=== PATIENT | female | born 1990 | race Caucasian/White ===

== ENCOUNTER 2016-04-20 17:24 | Emergency (ER) | payer OTHER ==
[2016-04-20] MEDS ORDERED: Sodium Chloride 0.9% 1000 ML 1,000 ML IV STA (17:53)
[2016-04-20] MEDS ORDERED: TYLENOL 325 MG PO STA (17:54)
[2016-04-20] MEDS ORDERED: Sodium Chloride 0.9% 1000 ML 1,000 ML ONE (17:55)
[2016-04-20] MEDS ORDERED: TYLENOL 325 MG ONE (17:55)
[2016-04-20 17:56] LABS: Bacteria FEW /HPF (NEGATIVE); COMPLETE URINE MICROSCOPIC? YES; Collection Type CATH; Epithelial Cells RARE /HPF (FEW); Mucus MANY /HPF (NEGATIVE)
[2016-04-20] MEDS ORDERED: Zofran 4 MG/2 ML VIAL IV ONE (17:56)
[2016-04-20] MEDS ORDERED: Zofran 4 MG/2 ML VIAL ONE (17:57)
--- NOTE | 2016-04-20 18:02 | ERPHSYRPT ---
- History of Present Illness Time Seen by Provider: 04/20/16 17:46 Source: patient Patient Subjective Stated Complaint: pt states she has had a fever for the past 1 day. pt c/o sorethroat and bodyaches with a cough. Triage Nursing Assessment: pt , flushed hot to touch dry. mouth dry. Physician History: CC: fever Hx: 25 y/o healthy patient of Dr Vizcaino with nausea, aches, myalgias, sore throat, headache, mild cough. Normal urination. No vomiting or diarrhea but had dry heave this AM. No rash. Symptoms moderate. Feels bad. Current normal menses. Timing/Duration: yesterday Allergies/Adverse Reactions: No Known Drug Allergies Allergy (Verified 04/20/16 17:35) Hx Tetanus, Diphtheria Vaccination/Date Given: Yes (up to date) Hx Influenza Vaccination/Date Given: No Hx Pneumococcal Vaccination/Date Given: No Immunizations Up to Date: Yes - Review of Systems Constitutional: Fever, Chills, Fatigue, Malaise, Weakness Eyes: No Symptoms Ears, Nose, & Throat: Nose Congestion, Throat Pain Respiratory: Cough (mild) Abdominal/Gastrointestinal: Nausea, No Vomiting, No Diarrhea Musculoskeletal: Myalgias Skin: No Rash Neurological: Headache All Other Systems: Reviewed and Negative - Past Medical History Pertinent Past Medical History: No Neurological History: No Pertinent History ENT History: No Pertinent History Cardiac History: No Pertinent History Respiratory History: No Pertinent History Endocrine Medical History: No Pertinent History Musculoskeletal History: No Pertinent History GI Medical History: No Pertinent History History: No Pertinent History Psycho-Social History: No Pertinent History Female Reproductive Disorders: No Pertinent History - Past Surgical History Past Surgical History: No Female Surgical History: Other Other Surgical History: 2 NATURAL CHILDBIRTHS - Social History Smoking Status: Never smoker Exposure to second hand smoke: Yes Drug Use: none Patient Lives Alone: No - Female History Hx Last Menstrual Period: now Hx Now: Yes - Nursing Vital Signs Nursing Vital Signs: Initial Vital Signs Temperature 100.1 F Temperature Source Oral Pulse Rate 98 Respiratory Rate 18 Blood Pressure [Right Arm] 119/70 Pain Intensity 3 - Physical Exam General Appearance: alert Eye Exam: PERRL/EOMI Ears, Nose, Throat Exam: dry mucous membranes Neck Exam: normal inspection, non-tender, supple Respiratory Exam: normal breath sounds, lungs clear Cardiovascular Exam: regular rate/rhythm, tachycardia, No murmur Gastrointestinal/Abdomen Exam: soft, No tenderness, No distention Back Exam: normal inspection Extremity Exam: normal inspection, normal range of motion Neurologic Exam: alert, oriented x 3, cooperative Skin Exam: warm, dry, No rash SpO2 Interpretation: normal SpO2: 100 Oxygen Delivery: Room Air - Course Nursing assessment & vital signs reviewed: Yes Ordered Tests: Active Orders 24 hr Category Date Time Status Cath for Specimen-Straight STAT Care 04/20/16 17:43 Active IV Insertion STAT Care 04/20/16 17:44 Active PO Popsicle STAT Care 04/20/16 17:57 Active HCG,QUALITATIVE URINE Stat Lab 04/20/16 17:45 Completed UA W/ MICROSCOPIC Stat Lab 04/20/16 17:45 Completed Medication Summary Discontinued Medications Generic Name Dose Route Start Last Admin Trade Name Freq PRN Reason Stop Dose Admin Acetaminophen 975 mg 04/20/16 17:54 04/20/16 17:55 Tylenol 325 Mg PO 04/20/16 17:55 975 mg STAT STA Administration Acetaminophen Confirm 04/20/16 17:55 Tylenol 325 Mg Administered 04/20/16 17:56 Dose 975 mg .ROUTE .STK-MED ONE Sodium Chloride 1,000 mls @ 999 mls/hr 04/20/16 17:53 04/20/16 17:56 Sodium Chloride 0.9% 1000 Ml IV 04/20/16 18:53 999 mls/hr .Q1H1M STA Administration Sodium Chloride Confirm 04/20/16 17:55 Sodium Chloride 0.9% 1000 Ml Administered 04/20/16 17:56 Dose 1,000 mls @ ud .ROUTE .STK-MED ONE Ondansetron HCl 4 mg 04/20/16 17:56 04/20/16 17:57 Zofran 4 Mg/2 Ml Vial IV 04/20/16 17:57 4 mg STAT ONE Administration Ondansetron HCl Confirm 04/20/16 17:57 Zofran 4 Mg/2 Ml Vial Administered 04/20/16 17:58 Dose 4 mg .ROUTE .STK-MED ONE Lab/Rad Data: Laboratory Results 04/20/16 04/20/16 04/20/16 Range/Units 17:45 17:45 17:45 Ur Collection Type CATH Urine Color YELLOW (YELLOW) Urine Appearance CLEAR (CLEAR) Urine pH 6.0 (5-6) Ur Specific [place] 1.025 (1.005-1.025) Urine Protein 100 (Negative) Urine Glucose (UA) NEGATIVE (NEGATIVE) mg/dL Urine Ketones SMALL-15 (NEGATIVE) Urine Nitrite NEGATIVE (NEGATIVE) Urine Bilirubin NEGATIVE (NEGATIVE) Urine Urobilinogen 1 (0-1) mg/dL Urine WBC (Auto) NEGATIVE (NEGATIVE) Urine RBC (Auto) NEGATIVE (0-5) Prakash/ul Urine Microscopic RBC 0-2 (0-2) /HPF Urine Microscopic WBC 2-5 (0-5) /HPF Ur Epithelial Cells RARE (FEW) /HPF Urine Bacteria FEW (NEGATIVE) /HPF Urine Mucus MANY (NEGATIVE) /HPF Urine HCG, Qual NEGATIVE (Negative) Influenza Type A Ag POSITIVE (NEGATIVE) Influenza Type B Ag NEGATIVE (NEGATIVE) RSV (PCR) NEGATIVE (Negative) Specimen Received 04-20-16 1749 - Progress Progress Note: 04/20/16 18:57 Feels better with meds and IVF. Flu instr given. Counseled pt/family regarding: lab results, diagnosis, need for follow-up - Departure Time of Disposition: 18:57 Departure Disposition: Home Clinical Impression: Influenza A Condition: Stable Critical Care Time: No Referrals: JENNA WARD NP [Primary Care Provider] - Instructions: Fever (Symptom) -- Adult, Influenza -- Adult Additional Instructions: UPPER RESPIRATORY INFECTIONS 1. The signs and symptoms of a cold may last up to 10 days. These illnesses are due to viruses which are not treatable with antibiotics. 2. The following suggestions can aid in recovery and to minimize symptoms: A. Increase fluid intake. B. Acetaminophen or Ibuprofen as directed. C. Avoid smoking environments as this will increase the risk of developing pneumonia. D. For children, may use a cool mist vaporizer in the child's room. 3. Contact your Family Physician if you note: A. Persisten fever >103 for more than 3 days B. Breathing difficulty C. Productive cough of yellow/green sputum D. Illness greater than 7 days E. Persistent vomiting F. Stiff neck Rx zofran for nausea. Drink plenty of fluids. Prescriptions: Ondansetron [Zofran Odt] 4 mg PO Q6HPRN PRN #10 tab.rapdis PRN Reason: Nausea/Vomiting
[2016-04-20 19:05] VITALS: BP 123/62; PULSE 117; O2SAT 98
== END 2016-04-20 19:05 | disposition home or self-care (01) ==
LOC: ED 17:24
DX: J11.1 Influenza due to unidentified influenza virus with other respiratory manifestations (principal); R50.9 Fever, unspecified; J02.9 Acute pharyngitis, unspecified; R05 Cough; R51 Headache; R11.2 Nausea with vomiting, unspecified
CPT/HCPCS: 36000; 81000; 84703; 87631; 96360; 96374; 99284; J2405; P9612; A9270-GY

== ENCOUNTER 2017-10-14 09:38 | Observation (INO) | payer OTHER ==
[2012-02-21 08:40] VITALS: BP 139/98
--- NOTE | 2017-10-14 10:49 | XRAY ---
Indication: well-being and growth. 2-dimensional OB ultrasound performed. Comparison: June 06, 2017. Again there is a single viable intrauterine now in cephalic presentation. heart rate 142 BPM. anatomy previously documented. Visualized stomach and bladder appear unremarkable. Placenta is again posterior fundal without abruption/previa. BPD measures 8.99 cm corresponding to 36 weeks 3 days. HC measures 32.80 cm corresponding to 37 weeks 2 days. AC measures 34.63 cm corresponding to 38 weeks 4 days. FL measures 7.17 cm corresponding to 36 weeks 5 days. ANDRE is 11.8 cm. Impression: Again single viable intrauterine with mean gestational age 37 weeks 2 days. Normal progression of . No new/acute findings.
[2017-10-14 11:40] VITALS: PULSE 77
[2017-10-14 12:03] VITALS: BP 116/76
== END 2017-10-14 11:40 | disposition home or self-care (01) ==
LOC: MED SURG 09:38 → UNDOADMOB 09:38 → UNDODISOB 11:40
PROVIDERS: ADMIT Family Medicine; ATTEND Family Medicine
DX: Z34.83 Encounter for supervision of other normal pregnancy, third trimester (principal)
CPT/HCPCS: 76805; G0378; 59025

== ENCOUNTER 2017-10-17 10:13 | Observation (INO) | payer OTHER ==
[2017-10-17 12:23] VITALS: BP 127/83; PULSE 81
== END 2017-10-17 12:23 | disposition home or self-care (01) ==
LOC: OB 10:13
PROVIDERS: ADMIT Family Medicine; ATTEND Family Medicine
DX: Z34.83 Encounter for supervision of other normal pregnancy, third trimester (principal)
CPT/HCPCS: 59025; G0378

== ENCOUNTER 2017-10-18 06:43 | Inpatient (IN) | payer OTHER ==
[2017-10-18 07:25] LABS: Appearance HAZY (CLEAR); Bacteria MODERATE /HPF (NEGATIVE); Bilirubin NEGATIVE (NEGATIVE); Blood NEGATIVE Ery/ul (0-5); Epithelial Cells PACKED /HPF (FEW); Glucose NEGATIVE (NEGATIVE); Ketones MODERATE (NEGATIVE); Leukocyte Esterase 1+ (NEGATIVE); Nitrite NEGATIVE (NEGATIVE); Protein,Urine Dip NEGATIVE (Negative); Urobilinogen 1 mg/dL (0-1); WBC 50-100 /HPF (0-5)
[2017-10-18] MEDS ORDERED: OB EPIDURAL NAROPIN/SUFENTANIL IN NACL EPIDURAL PRN ×2 (08:05→09:13)
[2017-10-18] MEDS ORDERED: Lactated Ringers 1,000 ML IV ONE ×2 (08:05→09:13)
[2017-10-18] MEDS ORDERED: Ephedrine Sulfate 50 MG/ML IV PRN ×2 (08:05→09:13)
[2017-10-18 08:12] LABS: Amphetamine,Urine NEGATIVE (NEGATIVE); Barbiturate,Urine NEGATIVE (NEGATIVE); Benzodiazepine,Urine NEGATIVE (NEGATIVE); Cocaine,Urine NEGATIVE (NEGATIVE); Methadone,Urine NEGATIVE (NEGATIVE); Opiate,Urine NEGATIVE (NEGATIVE); PCP,Urine NEGATIVE (NEGATIVE); THC,Urine NEGATIVE (NEGATIVE)
[2017-10-18 08:18] LABS: Hematocrit 34.5 % (35-47); Hemoglobin 11.7 gm/dl (12.0-16.0); Mean Cell Volume 83.7 fl (78-100); Mean Corpuscular Hgb Concent. 33.9 g/dl (32-36); Mean Platelet Volume 11.8 fl (6-9.5); Platelet Count 145 K/mm3 (150-450); Red Blood Count 4.12 M/mm3 (4.1-5.4); Red Cell Distribution Width 14.6 % (11.5-14.0); White Blood Count 6.3 K/mm3 (4.0-10.5)
[2017-10-18 08:32] LABS: Mean Corpuscular Hemoglobin 28.3 pg (26-32)
[2017-10-18] MEDS: Lactated Ringers 1,000 ML IV SCH ×3 (08:33→11:38)
[2017-10-18] MEDS ORDERED: Zofran 4 MG/2 ML VIAL IV PRN (09:13)
[2017-10-18] MEDS ORDERED: PITOCIN 30 UNITS/ LR 500 ML 500 ML IV SCH ×2 (09:30→13:30)
[2017-10-18 10:24] LABS: BAND 1 % (0.0-2.0); Lymphocytes 25 % (24-44); Monocyte 8 % (0.0-12.0); Neutrophils 66 % (36.0-66.0); Total Cells Counted 100
[2017-10-18 10:25] LABS: ANISOCYTOSIS 1+; Platelet Estimate NORMAL (NORMAL); Polychromasia RARE
[2017-10-18 10:26] LABS: Toxic Granulation 1+
[2017-10-18 13:14] LABS: Amphetamine,Urine NEGATIVE (NEGATIVE); Barbiturate,Urine NEGATIVE (NEGATIVE); Benzodiazepine,Urine NEGATIVE (NEGATIVE); Cocaine,Urine NEGATIVE (NEGATIVE); Methadone,Urine NEGATIVE (NEGATIVE); Opiate,Urine NEGATIVE (NEGATIVE); PCP,Urine NEGATIVE (NEGATIVE); THC,Urine NEGATIVE (NEGATIVE)
[2017-10-18] MEDS ORDERED: BRETHINE 1 MG/ML SQ PRN (13:26)
[2017-10-18] MEDS ORDERED: LANSINOH 40 GM TOP PRN (17:35)
[2017-10-18] MEDS ORDERED: Adacel Vial IM ONE (17:35)
[2017-10-18] MEDS ORDERED: MOTRIN 400 MG PO PRN (17:35)
[2017-10-18] MEDS ORDERED: NORCO 5/325 MG PO PRN (17:35)
[2017-10-18] MEDS ORDERED: Anucort-HC SUPPOSITORY PR PRN (17:35)
[2017-10-18] MEDS ORDERED: Ambien 10 MG PO PRN (17:35)
[2017-10-18] MEDS ORDERED: Dulcolax 10 MG SUPP PR PRN (17:35)
[2017-10-18] MEDS ORDERED: CORTISONE 1% CREAM TP PRN (17:35)
[2017-10-18] MEDS ORDERED: Mylicon 80MG PO PRN (17:35)
[2017-10-18] MEDS ORDERED: TYLENOL EXTRA STRENGTH 500 MG PO PRN (17:35)
[2017-10-18] MEDS ORDERED: TUCKS TP PRN (17:35)
[2017-10-18] MEDS ORDERED: Dermoplast Spray TP PRN (17:35)
[2017-10-18] MEDS ORDERED: Colace 100 MG PO SCH (22:00)
[2017-10-19 05:36] VITALS: O2SAT 98
[2017-10-19 05:49] LABS: BASOPHIL % 0.1 % (0.0-0.4); Basophil (Absolute #) 0.01 (0-0.4); Eosinophil % 0.8 % (0.00-5.0); Eosinophil (Absolute #) 0.07 (0-0.5); Granulocyte Absolute (ANC) 6.43 (1.4-6.9); Granulocytes % 77.7 % (36.0-66.0); Hematocrit 29.6 % (35-47); Hemoglobin 9.7 gm/dl (12.0-16.0); Lymphocyte (Absolute #) 1.07 (1.0-4.6); Lymphocytes % 12.9 % (24.0-44.0); Mean Cell Volume 85.8 fl (78-100); Mean Corpuscular Hemoglobin 28.1 pg (26-32); Mean Corpuscular Hgb Concent. 32.8 g/dl (32-36); Mean Platelet Volume 11.8 fl (6-9.5); Monocytes % 8.5 % (0.0-12.0); Platelet Count 136 K/mm3 (150-450); Red Blood Count 3.45 M/mm3 (4.1-5.4); Red Cell Distribution Width 14.6 % (11.5-14.0); White Blood Count 8.3 K/mm3 (4.0-10.5)
[2017-10-19] MEDS ORDERED: TYLENOL EXTRA STRENGTH 500 MG ONE (05:54)
[2017-10-19 08:56] VITALS: BP 138/84; PULSE 61
--- NOTE | 2017-10-19 08:56 | PCM.DS ---
Discharge Summary Date of Admission: 10/18/17 09:07 Admitting Physician: RAMIN VIZCAINO Consults: Consults on Case 10/18/17 08:06 Notify Anesthesia Provider PRN Primary Care Provider: RAMIN VIZCAINO Allergies Allergies No Known Drug Allergies Allergy (Verified 04/20/16 17:35) Hospital Summary - Hospital Course Hospital Course: Pt was admitted yesterday at at 36w 7d in active labor. She delivered a viable male at about 1720 yesterday. He was transferred to [facility] NICU in respiratory distress last night. Pt has had elevated bp into the 150s systolic on 2 occasions. She did have a mild DELANEY last night that resolved. She does have some chronic visual changes related to her migraines; she did have some of these visual changes last night. She has some LE edema this morning. She will be discharged today. Would like her to check BP at least BID for the next few weeks. See me in 1 week. Report any high bp (see pt instructions). She had a CBC this morning with platelets of 136; CMP and uric acid are pending. - Vitals & Intake/Output Vital Signs: Vital Signs Temperature 98.0 F 10/19/17 05:15 Pulse Rate 62 10/19/17 05:15 Respiratory Rate 20 10/19/17 05:15 Blood Pressure 152/92 10/19/17 05:15 O2 Sat by Pulse Oximetry 98 10/19/17 05:15 Intake & Output: Intake & Output 10/16/17 10/17/17 10/18/17 10/19/17 11:59 11:59 11:59 11:59 Intake Total 1500 5020 Output Total 300 Balance 1500 4720 Weight 132 kg - Lab Result Diagrams: 10/19/17 05:11 Lab Results-Last 24 Hrs: Lab Results-Last 24 Hours 10/18/17 10/18/17 10/18/17 Range/Units 08:15 08:17 12:40 WBC 6.3 (4.0-10.5) K/mm3 RBC 4.12 (4.1-5.4) M/mm3 Hgb 11.7 L (12.0-16.0) gm/dl Hct 34.5 L (35-47) % MCV 83.7 (78-100) fl MCH 28.3 (26-32) pg MCHC 33.9 (32-36) g/dl RDW 14.6 H (11.5-14.0) % Plt Count 145 L (150-450) K/mm3 MPV 11.8 H (6-9.5) fl Gran % (36.0-66.0) % Eos # (Auto) (0-0.5) Absolute Lymphs (auto) (1.0-4.6) Absolute Monos (auto) (0.0-1.3) Lymphocytes % (24.0-44.0) % Monocytes % (0.0-12.0) % Eosinophils % (0.00-5.0) % Basophils % (0.0-0.4) % Absolute Granulocytes (1.4-6.9) Segmented Neutrophils 66 (36.0-66.0) % Band Neutrophils 1 (0.0-2.0) % Lymphocytes (Manual) 25 (24-44) % Monocytes (Manual) 8 (0.0-12.0) % Basophils # (0-0.4) Toxic Granulation 1+ Platelet Estimate NORMAL (NORMAL) RBC Morphology ABNORMAL Polychromasia RARE Anisocytosis 1+ Urine Opiates Level NEGATIVE NEGATIVE (NEGATIVE) Ur Methadone NEGATIVE NEGATIVE (NEGATIVE) Urine Barbiturates NEGATIVE NEGATIVE (NEGATIVE) Ur Phencyclidine (PCP) NEGATIVE NEGATIVE (NEGATIVE) Urine Amphetamine NEGATIVE NEGATIVE (NEGATIVE) U Benzodiazepine Level NEGATIVE NEGATIVE (NEGATIVE) Urine Cocaine NEGATIVE NEGATIVE (NEGATIVE) Urine Marijuana (THC) NEGATIVE NEGATIVE (NEGATIVE) 10/19/17 Range/Units 05:11 WBC 8.3 (4.0-10.5) K/mm3 RBC 3.45 L (4.1-5.4) M/mm3 Hgb 9.7 L (12.0-16.0) gm/dl Hct 29.6 L (35-47) % MCV 85.8 (78-100) fl MCH 28.1 (26-32) pg MCHC 32.8 (32-36) g/dl RDW 14.6 H (11.5-14.0) % Plt Count 136 L (150-450) K/mm3 MPV 11.8 H (6-9.5) fl Gran % 77.7 H (36.0-66.0) % Eos # (Auto) 0.07 (0-0.5) Absolute Lymphs (auto) 1.07 (1.0-4.6) Absolute Monos (auto) 0.70 (0.0-1.3) Lymphocytes % 12.9 L (24.0-44.0) % Monocytes % 8.5 (0.0-12.0) % Eosinophils % 0.8 (0.00-5.0) % Basophils % 0.1 (0.0-0.4) % Absolute Granulocytes 6.43 (1.4-6.9) Segmented Neutrophils (36.0-66.0) % Band Neutrophils (0.0-2.0) % Lymphocytes (Manual) (24-44) % Monocytes (Manual) (0.0-12.0) % Basophils # 0.01 (0-0.4) Toxic Granulation Platelet Estimate (NORMAL) RBC Morphology Polychromasia Anisocytosis Urine Opiates Level (NEGATIVE) Ur Methadone (NEGATIVE) Urine Barbiturates (NEGATIVE) Ur Phencyclidine (PCP) (NEGATIVE) Urine Amphetamine (NEGATIVE) U Benzodiazepine Level (NEGATIVE) Urine Cocaine (NEGATIVE) Urine Marijuana (THC) (NEGATIVE) Discharge Exam General Appearance: no apparent distress, alert Neurologic Exam: oriented x 3, cooperative, other (pat refl 2+ bilat. no clonus bilaterally) Skin Exam: normal color, warm, dry, No rash Respiratory Exam: normal breath sounds, lungs clear, No crackles/rales, No rhonchi, No wheezing Cardiovascular Exam: regular rate/rhythm, normal heart sounds, No murmur Gastrointestinal/Abdomen Exam: soft, other (fundus firm under umbilicus) Extremity Exam: pedal edema (trace LE edema bilat) Final Diagnosis/Problem List - Final Discharge Diagnosis/Problem (1) Vaginal delivery Current Visit: No Status: Acute Assessment & Plan: PPD #1 - ok to discharge today so she can go to the NICU to see her baby. (2) induced hypertension Current Visit: Yes Status: Acute Assessment & Plan: With some edema and low platelets; discussed s/sx of pre-eclampsia. Would like her to check BP BID and report high BP (see pt instructions). Would send her to OB triage at [facility] if having issues at NICU. (3) Thrombocytopenia Current Visit: Yes Status: Acute Assessment & Plan: Will keep an eye on platelets; decreased from yesterday. Will need to recheck in 2 days. - Discharge Disposition: Home, Self-Care Condition: Stable Additional Instructions: Check your blood pressures at least twice daily; more if you are not feeling well. If the top number is over 160 or the bottom number is over 110, you MUST call the office KATHY (or, if you are at [facility], go to the OB triage). Let a doctor know KATHY if you notice more swelling in your legs, hands, or face (especially if it is sudden), have a severe headache, or start having visual changes that are new or different. Get lab work done on Tuesday. Return to Dr. Vizcaino in 1 week. Follow up with: RAMIN VIZCAINO [Primary Care Provider] - 1 Week
[2017-10-19] MEDS ORDERED: FERREX 150 PO SCH (10:00)
[2017-10-19 10:07] LABS: ALBUMIN 2.6 g/dL (3.5-5.0); ALKALINE PHOSPHATASE 174 U/L (38-126); ANION GAP 8.9 MEQ/L (5-15); BLOOD UREA NITROGEN 9 mg/dL (7-17); CHLORIDE 108 mmol/L (98-107); Calcium 8.6 mg/dL (8.4-10.2); Carbon Dioxide 27 mmol/L (22-30); Creatinine 1 0.68 mg/dL (0.52-1.04); Glucose 92 mg/dL (74-106); SGOT/AST 35 U/L (14-36); SGPT/ALT 25 U/L (0-35); SODIUM 140 mmol/L (137-145); Total Protein 5.2 g/dL (6.3-8.2); Uric Acid 5.9 mg/dL (2.6-6.0)
== END 2017-10-19 09:55 | disposition home or self-care (01) | DRG 775 ==
LOC: OB 06:43 → OBSVTOIN 09:07 → OB 09:07
PROVIDERS: ADMIT Family Medicine; ATTEND Family Medicine
PROC: 10E0XZZ Delivery of Products of Conception, External Approach (ICD-10-PCS; principal; 2017-10-18)
DX: O13.4 Gestational [pregnancy-induced] hypertension without significant proteinuria, complicating childbirth (principal); O24.429 Gestational diabetes mellitus in childbirth, unspecified control; Z3A.38 38 weeks gestation of pregnancy; Z37.0 Single live birth; D64.9 Anemia, unspecified; D69.6 Thrombocytopenia, unspecified
CPT/HCPCS: 36415; 59025; 80053; 80307; 81000; 84550; 85007; 85025; 85027; G0378; J2590; J2795; A9270-GY

== ENCOUNTER 2019-03-07 18:36 | Emergency (ER) | payer OTHER ==
[2019-03-07] MEDS ORDERED: Sodium Chloride 0.9% 1000 ML 1,000 ML IV STA (19:33)
[2019-03-07] MEDS ORDERED: Zofran 4 MG/2 ML VIAL IV ONE (19:33)
[2019-03-07] MEDS ORDERED: MORPHINE SULFATE 2 MG INJ IV ONE (19:33)
--- NOTE | 2019-03-07 19:35 | ERPHSYRPT ---
- History of Present Illness Time Seen by Provider: 03/07/19 19:00 Historian: patient Exam Limitations: no limitations Patient Subjective Stated Complaint: abdominal pain Triage Nursing Assessment: Patient brought back to ED via w/c and transferred self to bed. Patient A+O X3. Patient's skin pink, warm and dry. Patient complains of right sided abdominal pain constant throbbing/burning pain 4/10 that has gotten worse all day. Patient's abdomen soft and round with BS X 4. Patient states she has been having diarrhea, vomiting and nausea all day. Patient states she is having gallbladder surgery on 03/12/[address] Bose. Timing/Duration: today Activities at Onset: none Quality: aching Abdominal Pain Onset Location: RUQ Pain Radiation: no radiation Severity of Pain-Max: moderate Severity of Pain-Current: moderate Modifying Factors: Improves With: nothing Associated Symptoms: diarrhea, nausea, vomiting, No back, No chest pain, No diaphoresis, No fever/chills, No loss of appetite, No neck pain, No shortness of breath Previous symptoms: same symptoms as today (h/o RUQ pain. She is scheduled for cholecystectomy in early March.) Allergies/Adverse Reactions: No Known Drug Allergies Allergy (Verified 03/07/19 18:46) Hx Tetanus, Diphtheria Vaccination/Date Given: Yes (up to date) Hx Influenza Vaccination/Date Given: No Hx Pneumococcal Vaccination/Date Given: No Immunizations Up to Date: Yes - Review of Systems Constitutional: No Fever, No Chills Eyes: No Symptoms Ears, Nose, & Throat: No Symptoms Respiratory: No Cough, No Dyspnea Cardiac: No Chest Pain, No Edema, No Syncope Abdominal/Gastrointestinal: Abdominal Pain, Nausea, Vomiting, Diarrhea, No Constipation, No Hematemesis, No Hematochezia, No Melena, No Dysphagia Genitourinary Symptoms: No Symptoms, No Dysuria Musculoskeletal: No Back Pain, No Neck Pain Skin: No Rash Neurological: No Dizziness, No Focal Weakness, No Sensory Changes Psychological: No Symptoms Endocrine: No Symptoms All Other Systems: Reviewed and Negative - Past Medical History Pertinent Past Medical History: Yes Neurological History: No Pertinent History ENT History: No Pertinent History Cardiac History: Hypertension, No Pertinent History Respiratory History: No Pertinent History Endocrine Medical History: No Pertinent History Musculoskeletal History: No Pertinent History GI Medical History: No Pertinent History History: No Pertinent History Psycho-Social History: No Pertinent History Female Reproductive Disorders: No Pertinent History - Past Surgical History Past Surgical History: No Neuro Surgical History: No Pertinent History Cardiac: No Pertinent History Respiratory: No Pertinent History Gastrointestinal: No Pertinent History Genitourinary: No Pertinent History Musculoskeletal: No Pertinent History Female Surgical History: No Pertinent History, Other Other Surgical History: 4 NATURAL CHILDBIRTHS - Social History Smoking Status: Never smoker Exposure to second hand smoke: No Drug Use: none Patient Lives Alone: No - Female History Hx Last Menstrual Period: this month Hx Now: No - Nursing Vital Signs Nursing Vital Signs: Initial Vital Signs Temperature 98.0 F 03/07/19 18:47 Pulse Rate 114 H 03/07/19 18:47 Respiratory Rate 18 03/07/19 18:47 Blood Pressure 123/77 03/07/19 18:47 O2 Sat by Pulse Oximetry 99 03/07/19 18:47 Pain Scale Pain Intensity 0 - Physical Exam General Appearance: no apparent distress, alert Eye Exam: PERRL/EOMI, eyes nml inspection Ears, Nose, Throat Exam: normal ENT inspection, pharynx normal, moist mucous membranes Neck Exam: normal inspection, non-tender, supple, full range of motion Respiratory Exam: normal breath sounds, lungs clear, No respiratory distress Cardiovascular Exam: regular rate/rhythm, normal heart sounds Gastrointestinal/Abdomen Exam: soft, tenderness (Rt. UQ TTP. Palpation reproduces symptoms. ), No mass, No guarding Pelvic Exam: not done Back Exam: normal inspection, normal range of motion, No CVA tenderness, No vertebral tenderness Extremity Exam: normal inspection, normal range of motion, pelvis stable Neurologic Exam: alert, oriented x 3, cooperative, normal mood/affect, nml cerebellar function, sensation nml, No motor deficits Skin Exam: normal color, warm, dry SpO2 Interpretation: normal SpO2: 99 O2 Delivery: Room Air - CT Exams Abdomen/Pelvis CT Interpretation: Negative Ordered Tests: Active Orders 24 hr Category Date Time Status IV Insertion STAT Care 03/07/19 19:33 Active ABDOMEN AND PELVIS W CONTRAST [CT] Stat Exams 03/07/19 20:05 Taken CBC W DIFF Stat Lab 03/07/19 19:58 Completed CMP Stat Lab 03/07/19 19:58 Completed HCG,QUALITATIVE URINE Stat Lab 03/07/19 20:50 Completed LIPASE Stat Lab 03/07/19 19:58 Completed UA W/RFX UR CULTURE Stat Lab 03/07/19 20:50 Completed Medication Summary Discontinued Medications Generic Name Dose Route Start Last Admin Trade Name Tl PRN Reason Stop Dose Admin Sodium Chloride 1,000 mls @ 999 mls/hr 03/07/19 19:33 03/07/19 21:33 Sodium Chloride 0.9% 1000 Ml IV 03/07/19 20:33 Infused .Q1H1M STA Infusion Sodium Chloride Confirm 03/07/19 20:00 Sodium Chloride 0.9% 1000 Ml Administered 03/07/19 20:01 Dose 1,000 mls @ ud .ROUTE .STK-MED ONE Morphine Sulfate 2 mg 03/07/19 19:33 03/07/19 20:03 Morphine Sulfate 2 Mg Inj IV 03/07/19 19:34 2 mg STAT ONE Administration Morphine Sulfate Confirm 03/07/19 20:00 Morphine Sulfate 2 Mg Inj Administered 03/07/19 20:01 Dose 2 mg .ROUTE .STK-MED ONE Ondansetron HCl 4 mg 03/07/19 19:33 03/07/19 20:03 Zofran 4 Mg/2 Ml Vial IV 03/07/19 19:34 4 mg STAT ONE Administration Ondansetron HCl Confirm 03/07/19 19:59 Zofran 4 Mg/2 Ml Vial Administered 03/07/19 20:00 Dose 4 mg .ROUTE .STK-MED ONE Lab/Rad Data: Laboratory Result Diagrams 03/07/19 19:58 03/07/19 19:58 Laboratory Results 03/07/19 03/07/19 03/07/19 Range/Units 20:50 20:50 19:58 WBC (4.0-10.5) K/mm3 RBC (4.1-5.4) M/mm3 Hgb (12.0-16.0) gm/dl Hct (35-47) % MCV (78-100) fl MCH (26-32) pg MCHC (32-36) g/dl RDW (11.5-14.0) % Plt Count (150-450) K/mm3 MPV (7.5-11.0) fl Gran % (36.0-66.0) % Eos # (Auto) (0-0.5) Absolute Lymphs (auto) (1.0-4.6) Absolute Monos (auto) (0.0-1.3) Lymphocytes % (24.0-44.0) % Monocytes % (0.0-12.0) % Eosinophils % (0.00-5.0) % Basophils % (0.0-0.4) % Absolute Granulocytes (1.4-6.9) Basophils # (0-0.4) Sodium 141 (137-145) mmol/L Potassium 3.8 (3.5-5.1) mmol/L Chloride 108 H (98-107) mmol/L Carbon Dioxide 22 (22-30) mmol/L Anion Gap 14.9 (5-15) MEQ/L BUN 14 (7-17) mg/dL Creatinine 0.71 (0.52-1.04) mg/dL Estimated GFR > 60.0 ML/MIN Glucose 110 H (74-106) mg/dL Calcium 9.7 (8.4-10.2) mg/dL Total Bilirubin 0.80 (0.2-1.3) mg/dL AST 22 (14-36) U/L ALT 14 (0-35) U/L Alkaline Phosphatase 113 (38-126) U/L Serum Total Protein 8.4 H (6.3-8.2) g/dL Albumin 4.8 (3.5-5.0) g/dL Lipase 72 (23-300) U/L Urine Color [place] (YELLOW) Urine Appearance CLOUDY (CLEAR) Urine pH 5.0 (5-6) Ur Specific [place] 1.034 (1.005-1.025) Urine Protein NEGATIVE (Negative) Urine Ketones SMALL (NEGATIVE) Urine Blood MODERATE (0-5) Prakash/ul Urine Nitrite NEGATIVE (NEGATIVE) Urine Bilirubin SMALL (NEGATIVE) Urine Urobilinogen NEGATIVE (0-1) mg/dL Ur Leukocyte Esterase NEGATIVE (NEGATIVE) Urine WBC (Auto) 3-5 (0-5) /HPF Urine RBC (Auto) 3-5 (0-2) /HPF U Hyaline Cast (Auto) 0-2 (0-2) /LPF U Epithel Cells (Auto) MODERATE (FEW) /HPF Urine Bacteria (Auto) NONE (NEGATIVE) /HPF Urine Mucus (Auto) MANY (NEGATIVE) /HPF Urine Culture Reflexed NO (NO) Urine Glucose NEGATIVE (NEGATIVE) mg/dL Urine HCG, Qual NEGATIVE (Negative) 03/07/19 Range/Units 19:58 WBC 10.5 (4.0-10.5) K/mm3 RBC 5.29 (4.1-5.4) M/mm3 Hgb 15.3 (12.0-16.0) gm/dl Hct 43.7 (35-47) % MCV 82.6 (78-100) fl MCH 28.9 (26-32) pg MCHC 35.0 (32-36) g/dl RDW 14.3 H (11.5-14.0) % Plt Count 227 (150-450) K/mm3 MPV 10.8 (7.5-11.0) fl Gran % 86.4 H (36.0-66.0) % Eos # (Auto) 0.04 (0-0.5) Absolute Lymphs (auto) 0.80 L (1.0-4.6) Absolute Monos (auto) 0.58 (0.0-1.3) Lymphocytes % 7.6 L (24.0-44.0) % Monocytes % 5.5 (0.0-12.0) % Eosinophils % 0.4 (0.00-5.0) % Basophils % 0.1 (0.0-0.4) % Absolute Granulocytes 9.03 H (1.4-6.9) Basophils # 0.01 (0-0.4) Sodium (137-145) mmol/L Potassium (3.5-5.1) mmol/L Chloride (98-107) mmol/L Carbon Dioxide (22-30) mmol/L Anion Gap (5-15) MEQ/L BUN (7-17) mg/dL Creatinine (0.52-1.04) mg/dL Estimated GFR ML/MIN Glucose (74-106) mg/dL Calcium (8.4-10.2) mg/dL Total Bilirubin (0.2-1.3) mg/dL AST (14-36) U/L ALT (0-35) U/L Alkaline Phosphatase (38-126) U/L Serum Total Protein (6.3-8.2) g/dL Albumin (3.5-5.0) g/dL Lipase (23-300) U/L Urine Color (YELLOW) Urine Appearance (CLEAR) Urine pH (5-6) Ur Specific [place] (1.005-1.025) Urine Protein (Negative) Urine Ketones (NEGATIVE) Urine Blood (0-5) Prakash/ul Urine Nitrite (NEGATIVE) Urine Bilirubin (NEGATIVE) Urine Urobilinogen (0-1) mg/dL Ur Leukocyte Esterase (NEGATIVE) Urine WBC (Auto) (0-5) /HPF Urine RBC (Auto) (0-2) /HPF U Hyaline Cast (Auto) (0-2) /LPF U Epithel Cells (Auto) (FEW) /HPF Urine Bacteria (Auto) (NEGATIVE) /HPF Urine Mucus (Auto) (NEGATIVE) /HPF Urine Culture Reflexed (NO) Urine Glucose (NEGATIVE) mg/dL Urine HCG, Qual (Negative) - Progress Progress Note: 03/07/19 22:40 Patient reassessed. Pain essentially resolved. Patient has an appetite and states that she wants to eat. She will follow up with her general surgeon. We intended to obtain a US GB but unable to do so as US would not be available until tomorrow morning. Patient requesting discharge. - Departure Departure Disposition: Home Clinical Impression: Abdominal pain, Hepatomegaly, Splenomegaly, Scoliosis Condition: Good Critical Care Time: No Referrals: RAMIN MACK [Primary Care Provider] - Instructions: Acute Abdomen (Belly Pain), Adult (DC) Additional Instructions: Discharge/Care Plan NARCISO HAYS was seen on 03/07/19 in the Emergency Room. The patient was counseled regarding Diagnosis,Lab results, Imaging studies, need for follow up and when to return to the Emergency Room. Prescriptions given: Discharge Note I have spoken with the patient and/or caregivers. I have explained the patient' s condition, diagnosis and treatment plan based on the information available to me at this time. I have answered the patient's and/or caregiver's questions and addressed any concerns. The patient and/or caregivers have as good understanding of the patient's diagnosis, condition and treatment plan as can be expected at this point. The vital signs have been stable. The patient's condition is stable and appropriate for discharge from the emergency department. The patient will pursue further outpatient evaluation with the primary care physician or other designated or consulting physician as outlined in the discharge instructions. The patient and/or caregivers are agreeable to this plan of care and follow-up instructions have been explained in detail. The patient and/or caregivers have received these instruction. The patient/and or caregivers are aware that any significant change in condition or worsening of symptoms should prompt an immediate return to this or the closest emergency department or call 911.
[2019-03-07] MEDS ORDERED: Zofran 4 MG/2 ML VIAL ONE (19:59)
[2019-03-07] MEDS ORDERED: MORPHINE SULFATE 2 MG INJ ONE (20:00)
[2019-03-07] MEDS ORDERED: Sodium Chloride 0.9% 1000 ML 1,000 ML ONE (20:00)
[2019-03-07 20:05] LABS: Absolute Neutrophil Ct (ANC) 9.03 (1.4-6.9); BASOPHIL % 0.1 % (0.0-0.4); Basophil (Absolute #) 0.01 (0-0.4); Eosinophil % 0.4 % (0.00-5.0); Eosinophil (Absolute #) 0.04 (0-0.5); Hematocrit 43.7 % (35-47); Hemoglobin 15.3 gm/dl (12.0-16.0); Lymphocytes % 7.6 % (24.0-44.0); Mean Cell Volume 82.6 fl (78-100); Mean Corpuscular Hemoglobin 28.9 pg (26-32); Mean Platelet Volume 10.8 fl (7.5-11.0); Monocyte (Absolute #) 0.58 (0.0-1.3); Monocytes % 5.5 % (0.0-12.0); Neutrophil % 86.4 % (36.0-66.0); Platelet Count 227 K/mm3 (150-450); Red Blood Count 5.29 M/mm3 (4.1-5.4); Red Cell Distribution Width 14.3 % (11.5-14.0); White Blood Count 10.5 K/mm3 (4.0-10.5)
[2019-03-07 20:23] LABS: ALBUMIN 4.8 g/dL (3.5-5.0); ALKALINE PHOSPHATASE 113 U/L (38-126); ANION GAP 14.9 MEQ/L (5-15); BLOOD UREA NITROGEN 14 mg/dL (7-17); CHLORIDE 108 mmol/L (98-107); Calcium 9.7 mg/dL (8.4-10.2); Carbon Dioxide 22 mmol/L (22-30); Creatinine 1 0.71 mg/dL (0.52-1.04); Glucose 110 mg/dL (74-106); LIPASE 72 U/L (23-300); Potassium 3.8 mmol/L (3.5-5.1); SGOT/AST 22 U/L (14-36); SGPT/ALT 14 U/L (0-35); SODIUM 141 mmol/L (137-145); Total Protein 8.4 g/dL (6.3-8.2)
[2019-03-07 21:06] LABS: Appearance CLOUDY (CLEAR); Bilirubin SMALL (NEGATIVE); Blood MODERATE Ery/ul (0-5); Epithelial Cells MODERATE /HPF (FEW); Glucose NEGATIVE (NEGATIVE); Hyaline Casts 0-2 /LPF (0-2); Ketones SMALL (NEGATIVE); Leukocyte Esterase NEGATIVE (NEGATIVE); Mucus MANY /HPF (NEGATIVE); Nitrite NEGATIVE (NEGATIVE); Protein,Urine Dip NEGATIVE (Negative); Specific Gravity 1.034 (1.005-1.025); Urobilinogen NEGATIVE mg/dL (0-1)
[2019-03-07 22:39] VITALS: BP 100/69; PULSE 92
[2019-03-07 22:42] VITALS: O2SAT 99
--- NOTE | 2019-03-08 08:39 | XRAY ---
Indication: Abdomen pain, nausea, vomiting, and diarrhea. Multiple contiguous axial images obtained through the abdomen and pelvis using 80 cc Isovue 370 contrast only. Comparison: CT renal stone study December 24, 2016. Lung bases are clear. Heart is not enlarged. Noncontrasted stomach and bowel loops appear nonobstructed. Appendix not seen. No free fluid/air. Stable 15.6 cm splenomegaly and nonobstructing punctate right renal calculus. Remaining liver, gallbladder, pancreas, spleen, adrenal glands, kidneys, ureters, bladder, uterus, and aorta appear normal in CT appearance and attenuation. No pathologic retroperitoneal lymphadenopathy. Osseous structures intact again with double curvature thoracolumbar scoliosis. Impression: 1. Stable splenomegaly, nonobstructing right renal micro-calculus, and scoliosis. 2. Remaining CT abdomen/pelvis with contrast exam is negative.
== END 2019-03-07 22:39 | disposition home or self-care (01) ==
LOC: ED 18:36
DX: R10.9 Unspecified abdominal pain (principal); R16.2 Hepatomegaly with splenomegaly, not elsewhere classified; M41.9 Scoliosis, unspecified
CPT/HCPCS: 36000; 36415; 74177; 80053; 81001; 83690; 84703; 85025; 96360; 96374; 96375; 99284; J2270; J2405

== ENCOUNTER 2019-03-12 11:30 | Day surgery (SDC) | payer OTHER ==
--- NOTE | 2019-03-12 08:18 | HP ---
DATE OF SURGERY: 03/12/2019 HISTORY OF PRESENT ILLNESS: The patient is a 28 year-old with epigastric pain back in December. She went to the emergency department associated with some nausea, vomiting and diarrhea worse with fatty and greasy type foods. PAST MEDICAL HISTORY: Reflux. PAST SURGICAL HISTORY: She denied any prior abdominal surgery. MEDICATIONS: Omeprazole. ALLERGIES: NKDA. FAMILY HISTORY: Ulcers. Negative in regards to this problem. SOCIAL HISTORY: No alcohol abuse. REVIEW OF SYSTEMS: Fourteen systems reviewed. No chest pain or palpitations other systems negative or noncontributory as above and per preadmission questionnaire. Otherwise, pertinent for GI complaints mentioned above. PHYSICAL EXAMINATION: GENERAL: No acute distress. HEENT: Sclerae nonicteric. NECK: No JVD. CHEST: Equal excursion, nonlabored breathing. CVS: Regular rate and rhythm. ABDOMEN: Soft, nontender on office exam. No peritoneal signs. EXTREMITIES: No significant edema. NEURO: Alert, oriented, moving extremities symmetrically. No gross motor deficits noted. LAB DATA AND TESTS: Gallbladder ultrasound negative. HIDA scan ejection fraction 22%. IMPRESSION: Symptomatic biliary dyskinesia chronic cholecystitis. I feel the patient will benefit from cholecystectomy. Risks and benefits explained in detail including but not limited to bleeding or infection, risk of trocar injury or hernia, risk of bowel, bladder or blood vessel injury, risk of bile leak, bile duct injury, retained stone or sludge possibly requiring further procedure either open or ERCP, general risk of anesthesia, deep venous thrombosis, pulmonary embolism, pneumonia, perioperative risk of aches, pains, bloating, constipation and/or loose stools possibly even chronic in nature. She understands all the above but not limited to as well as possibility if symptoms do not improve may need consideration of endoscopy or other studies or work up. She understands and agrees to the planned procedure, will proceed with laparoscopic cholecystectomy possible open.
[~2019-03-12 11:30] MED LIST: Lactated Ringers 1,000 ML IV ONE; Sensorcaine 0.25% 10 ML ONE
[2019-03-12] MEDS ORDERED: Lactated Ringers 1,000 ML IV ONE (11:45)
[2019-03-12 11:58] VITALS: O2SAT 100
[2019-03-12] MEDS ORDERED: MEFOXIN 2 GM PREMIX** 2 GM/50 ML ML IV SCH (12:00)
[2019-03-12] MEDS ORDERED: Lactated Ringers 1,000 ML IV SCH (12:00)
[2019-03-12] MEDS ORDERED: Zemuron 100 MG/10 ML ONE (12:42)
[2019-03-12] MEDS ORDERED: DIPRIVAN 200 MG/20 ML IV ONE (12:42)
[2019-03-12] MEDS ORDERED: Quelicin Fliptop 200 MG/10 ML ONE (12:42)
[2019-03-12] MEDS ORDERED: SUBLIMAZE 100 MCG/2 ML ONE ×2 (12:42→13:50)
[2019-03-12] MEDS ORDERED: TORAdol 30 mg Injection ONE (13:00)
[2019-03-12] MEDS ORDERED: Zofran 4 MG/2 ML VIAL ONE (13:00)
[2019-03-12] MEDS ORDERED: Decadron 4 MG INJ ONE (13:00)
[2019-03-12] MEDS ORDERED: BRIDION 200MG/2ML IV ONE (13:00)
[2019-03-12 15:33] VITALS: BP 132/82; PULSE 84
--- NOTE | 2019-03-13 12:20 | OP ---
SURGERY DATE/TIME: 03/12/2019 1250 PREOPERATIVE DIAGNOSIS: Symptomatic biliary dyskinesia, chronic cholecystitis. POSTOPERATIVE DIAGNOSIS: Symptomatic biliary dyskinesia, chronic cholecystitis. PROCEDURE: Laparoscopic cholecystectomy. SURGEON: Dr. Fran Pepper. ANESTHESIA: General. ESTIMATED BLOOD LOSS: Minimal. INDICATIONS: As noted above. Risks and benefits explained in detail but not limited to and consent obtained. DESCRIPTION OF PROCEDURE AND FINDINGS: The patient was taken to the operating room. General anesthesia induced. Abdomen prepped and draped in the usual sterile fashion. After official time out and no disagreement with planned procedure, a transverse incision made at the supraumbilical area. She had a supraumbilical piercing here. Fascia grasped and pulled upward. Veress needle inserted and tested with saline. Pneumoperitoneum accomplished insufflating opening pressure of 0-15. A 5 mm bladeless port and camera right upper quadrant inserted without difficulty followed by 8 mm port in the infraumbilical site and another 5 mm right upper quadrant port and 5 mm epigastric port. There was no evidence of any intra-abdominal injury secondary to trocar insertion. The gallbladder grasped retracted over the edge of the liver and laterally away from Calot's triangle. Extensive, chronic inflammatory reaction but slowly and carefully dissecting posterior, lateral to anterior fashion was accomplished. It should be noted the patient had anterior artery this was dissected free, clipped and divided allowing access to the cystic duct and infundibular junction. It had quite a bit of chronic inflammatory reaction but slowly and carefully skeletonized until the critical view obtained both anteriorly and posteriorly. Once this was accomplished cystic duct and cystic artery clipped x3 and divided in usual fashion. Gallbladder slowly and carefully dissected free from its dense attachment to liver bed, clipping additional oozing side branches off the cystic artery directly on the gallbladder wall as necessary. Just prior to releasing from final attachments to the anterior edge of the liver, the liver bed re-inspected. Clips noted to be in place cystic duct and cystic artery stumps. There were no signs of any active bleeding or bile leakage. It was felt there was no benefit from drain placement. Gallbladder released from final attachments to anterior edge of the liver. It is pulled up and out the 8 mm infraumbilical port site and passed off. Liver bed re-inspected. Clips noted in place cystic duct and cystic artery stumps. Copious amount of irrigation accomplished lateral to the liver irrigating until clear. The patient had a small amount of serous fluid down in the pelvis that she had at the beginning of the case that was there prior to the procedure, this is suctioned out as well. The fascial defect 8 mm closed under direct vision with a UR needle. Pneumoperitoneum had been decompressed. The wound irrigated out. Skin incision closed with 4-0 Vicryl. Steri-Strips and sterile dressing applied. 0.25% Marcaine local injected along the skin incision fascial defect. The patient tolerated the procedure well. There were no immediate complications. Findings discussed with the family out in the waiting area.
== END 2019-03-12 15:20 | disposition home or self-care (01) ==
LOC: SDC 11:30
PROVIDERS: ATTEND Surgery
DX: K81.1 Chronic cholecystitis (principal); K82.8 Other specified diseases of gallbladder
CPT/HCPCS: 84703; 88304; J0330; J0694; J1100; J1885; J2405; J2704; J3010

== ENCOUNTER 2020-05-20 07:02 | Emergency (ER) | payer OTHER ==
[2020-05-20] MEDS ORDERED: Sodium Chloride 0.9% 1000 ML 1,000 ML ONE (07:27)
[2020-05-20] MEDS ORDERED: Zofran 4 MG/2 ML VIAL ONE (07:27)
[2020-05-20] MEDS ORDERED: MORPHINE SULFATE 2 MG INJ ONE (07:27)
[2020-05-20] MEDS: Sodium Chloride 0.9% 1000 ML 1,000 ML IV SCH (07:28)
[2020-05-20] MEDS: MORPHINE SULFATE 2 MG INJ IV ONE (07:29)
[2020-05-20] MEDS: ZOFRAN ODT 4 MG PO ONE (07:30)
[2020-05-20] MEDS ORDERED: ZOFRAN ODT 4 MG ONE (07:30)
--- NOTE | 2020-05-20 07:42 | ERPHSYRPT ---
- History of Present Illness Time Seen by Provider: 05/20/20 07:10 Exam Limitations: no limitations Patient Subjective Stated Complaint: abd pain, emesis onset 0000 this am. Triage Nursing Assessment: pt to ED by EMS c/o abd pain epigastric region and emesis multiple times since 0000 this am. pt rates 09/16. EMS reports no emesis in route. pt describes as dull, tight pain. reports having gall bladder removed in past. Physician History: Patient is a 29-year-old female presents to our emergency department with complaints of epigastric pain and nausea and vomiting. Patient symptoms started last night at approximately 10 PM. Pain described as a dull ache that is well localized. No radiation. Patient states that vomiting worsens her epigastric pain. Rest improves her symptoms. No trauma. No fever. No diarrhea. No rash. Symptoms are mild to moderate in intensity. Patient states she is otherwise healthy. She advised that she has a history of cholecystectomy. Patient voices no other complaints or concerns at this time. Timing/Duration: yesterday Activities at Onset: none Quality: aching Abdominal Pain Onset Location: epigastric Pain Radiation: no radiation Severity of Pain-Max: moderate Severity of Pain-Current: mild Modifying Factors: Improves With: vomiting Associated Symptoms: nausea, vomiting, No chest pain, No diarrhea, No fever/chills, No headache, No heartburn, No rash, No shortness of breath Previous symptoms: no prior history Allergies/Adverse Reactions: No Known Drug Allergies Allergy (Verified 05/20/20 07:12) Hx Tetanus, Diphtheria Vaccination/Date Given: Yes (up to date) Hx Influenza Vaccination/Date Given: Yes Hx Pneumococcal Vaccination/Date Given: No Immunizations Up to Date: Yes Travel Risk - International Travel Have you traveled outside of the country in past 3 weeks: No - Coronavirus Screening Are you exhibiting any of the following symptoms?: Yes Symptoms: Vomiting/Diarrhea Close contact with a COVID-19 positive Pt in past 14-21 Days: No - Vaccine Status Have you recieved a Covid-19 vaccination: No - Review of Systems Constitutional: No Symptoms, No Fever, No Chills Eyes: No Symptoms Ears, Nose, & Throat: No Symptoms Respiratory: No Symptoms, No Cough, No Dyspnea Cardiac: No Symptoms, No Chest Pain, No Edema, No Syncope Abdominal/Gastrointestinal: No Symptoms, No Abdominal Pain, No Nausea, No Vomiting, No Diarrhea Genitourinary Symptoms: No Symptoms, No Dysuria Musculoskeletal: No Symptoms, No Back Pain, No Neck Pain Skin: No Symptoms, No Rash Neurological: No Symptoms, No Dizziness, No Focal Weakness, No Sensory Changes Psychological: No Symptoms Endocrine: No Symptoms Hematologic/Lymphatic: No Symptoms Immunological/Allergic: No Symptoms All Other Systems: Reviewed and Negative - Past Medical History Pertinent Past Medical History: Yes Neurological History: No Pertinent History ENT History: No Pertinent History Cardiac History: Hypertension Respiratory History: No Pertinent History Endocrine Medical History: No Pertinent History Musculoskeletal History: No Pertinent History GI Medical History: GERD, Gallbladder Disease History: No Pertinent History Psycho-Social History: No Pertinent History Female Reproductive Disorders: No Pertinent History - Past Surgical History Past Surgical History: Yes Neuro Surgical History: No Pertinent History Cardiac: No Pertinent History Respiratory: No Pertinent History Gastrointestinal: Cholecystectomy Genitourinary: No Pertinent History Musculoskeletal: No Pertinent History Female Surgical History: No Pertinent History Other Surgical History: 4 NATURAL CHILDBIRTHS - Social History Smoking Status: Never smoker Exposure to second hand smoke: No Drug Use: none Patient Lives Alone: No - Female History Hx Last Menstrual Period: 2-3 weeks ago Hx Now: No - Nursing Vital Signs Nursing Vital Signs: Initial Vital Signs Temperature 98.5 F 05/20/20 07:06 Pain Scale Pain Intensity 3 - Physical Exam General Appearance: no apparent distress, alert Eye Exam: PERRL/EOMI, eyes nml inspection Ears, Nose, Throat Exam: normal ENT inspection, pharynx normal, moist mucous membranes Neck Exam: normal inspection, non-tender, supple, full range of motion Respiratory Exam: normal breath sounds, lungs clear, airway intact, No respiratory distress, No rhonchi, No wheezing Cardiovascular Exam: regular rate/rhythm, normal heart sounds Gastrointestinal/Abdomen Exam: soft, other (Epigastric tenderness to palpation. Overlying soft tissue intact. No signs of trauma.), No tenderness, No mass Back Exam: normal inspection, normal range of motion, No CVA tenderness, No vertebral tenderness Extremity Exam: normal inspection, normal range of motion, pelvis stable Neurologic Exam: alert, oriented x 3, cooperative, normal mood/affect, nml cerebellar function, sensation nml, No motor deficits Skin Exam: normal color, warm, dry SpO2 Interpretation: normal SpO2: 98 O2 Delivery: Room Air - Course Nursing assessment & vital signs reviewed: Yes EKG Interpreted by Me: RATE ([id number]), Sinus Tach, NORMAL AXIS, NORMAL INTERVALS Ordered Tests: Active Orders 24 hr Category Date Time Status EKG-ER Only STAT Care 05/20/20 07:17 Active IV Insertion STAT Care 05/20/20 07:17 Active ABDOMEN AND PELVIS W CONTRAST [CT] Stat Exams 05/20/20 07:42 Completed CBC W DIFF Stat Lab 05/20/20 07:30 Completed CMP Stat Lab 05/20/20 07:30 Completed HCG,QUALITATIVE URINE Stat Lab 05/20/20 08:03 Completed LIPASE Stat Lab 05/20/20 07:30 Completed UA W/RFX UR CULTURE Stat Lab 05/20/20 08:03 Completed Medication Summary Generic Name Dose Route Start Last Admin Trade Name Freq PRN Reason Stop Dose Admin Sodium Chloride 1,000 mls @ 100 mls/hr 05/20/20 07:30 05/20/20 07:28 Sodium Chloride 0.9% 1000 Ml IV 06/19/20 07:29 100 mls/hr .Q10H CANDACE Administration Discontinued Medications Generic Name Dose Route Start Last Admin Trade Name Freq PRN Reason Stop Dose Admin Morphine Sulfate 2 mg 05/20/20 07:17 05/20/20 07:29 Morphine Sulfate 2 Mg Inj IV 05/20/20 07:18 2 mg STAT ONE Administration Morphine Sulfate Confirm 05/20/20 07:27 Morphine Sulfate 2 Mg Inj Administered 05/20/20 07:28 Dose 2 mg .ROUTE .STK-MED ONE Ondansetron HCl 4 mg 05/20/20 07:17 05/20/20 07:30 Zofran Odt 4 Mg PO 05/20/20 07:18 4 mg STAT ONE Administration Ondansetron HCl Confirm 05/20/20 07:27 Zofran 4 Mg/2 Ml Vial Administered 05/20/20 07:28 Dose 4 mg .ROUTE .STK-MED ONE Ondansetron HCl Confirm 05/20/20 07:30 Zofran Odt 4 Mg Administered 05/20/20 07:31 Dose 4 mg .ROUTE .STK-MED ONE Pantoprazole Sodium 40 mg 05/20/20 10:12 05/20/20 10:31 Protonix 40 Mg Iv IV 05/20/20 10:13 40 mg STAT ONE Administration Pantoprazole Sodium Confirm 05/20/20 10:30 Protonix 40 Mg Iv Administered 05/20/20 10:31 Dose 40 mg IV .STK-MED ONE Lab/Rad Data: Laboratory Result Diagrams 05/20/20 07:30 05/20/20 07:30 Laboratory Results 05/20/20 05/20/20 05/20/20 Range/Units 08:03 08:03 07:30 WBC (4.0-10.5) K/mm3 RBC (4.1-5.4) M/mm3 Hgb (12.0-16.0) gm/dl Hct (35-47) % MCV (78-100) fl MCH (26-32) pg MCHC (32-36) g/dl RDW (11.5-14.0) % Plt Count (150-450) K/mm3 MPV (7.5-11.0) fl Gran % (36.0-66.0) % Eos # (Auto) (0-0.5) Absolute Lymphs (auto) (1.0-4.6) Absolute Monos (auto) (0.0-1.3) Lymphocytes % (24.0-44.0) % Monocytes % (0.0-12.0) % Eosinophils % (0.00-5.0) % Basophils % (0.0-0.4) % Absolute Granulocytes (1.4-6.9) Basophils # (0-0.4) Sodium 140 (137-145) mmol/L Potassium 4.3 (3.5-5.1) mmol/L Chloride 105 (98-107) mmol/L Carbon Dioxide 21 L (22-30) mmol/L Anion Gap 18.4 H (5-15) MEQ/L BUN 12 (7-17) mg/dL Creatinine 0.82 (0.52-1.04) mg/dL Estimated GFR > 60.0 ML/MIN Glucose 106 (74-106) mg/dL Calcium 10.4 H (8.4-10.2) mg/dL Total Bilirubin 0.80 (0.2-1.3) mg/dL AST 27 (14-36) U/L ALT 16 (0-35) U/L Alkaline Phosphatase 115 (38-126) U/L Serum Total Protein 9.3 H (6.3-8.2) g/dL Albumin 5.3 H (3.5-5.0) g/dL Lipase 118 (23-300) U/L Urine Color YELLOW (YELLOW) Urine Appearance CLEAR (CLEAR) Urine pH 8.0 (5-6) Ur Specific [place] 1.017 (1.005-1.025) Urine Protein 30 (Negative) Urine Ketones MODERATE (NEGATIVE) Urine Blood NEGATIVE (0-5) Prakash/ul Urine Nitrite NEGATIVE (NEGATIVE) Urine Bilirubin NEGATIVE (NEGATIVE) Urine Urobilinogen NEGATIVE (0-1) mg/dL Ur Leukocyte Esterase NEGATIVE (NEGATIVE) Urine WBC (Auto) NONE (0-5) /HPF Urine RBC (Auto) NONE (0-2) /HPF U Hyaline Cast (Auto) 0-2 (0-2) /LPF U Epithel Cells (Auto) RARE (FEW) /HPF Urine Bacteria (Auto) NONE (NEGATIVE) /HPF Urine Mucus (Auto) SLIGHT (NEGATIVE) /HPF Urine Culture Reflexed NO (NO) Urine Glucose NEGATIVE (NEGATIVE) mg/dL Urine HCG, Qual NEGATIVE (Negative) 05/20/20 Range/Units 07:30 WBC 8.1 (4.0-10.5) K/mm3 RBC 5.53 H (4.1-5.4) M/mm3 Hgb 14.4 (12.0-16.0) gm/dl Hct 44.0 (35-47) % MCV 79.6 (78-100) fl MCH 26.0 (26-32) pg MCHC 32.7 (32-36) g/dl RDW 15.4 H (11.5-14.0) % Plt Count 231 (150-450) K/mm3 MPV 10.8 (7.5-11.0) fl Gran % 86.3 H (36.0-66.0) % Eos # (Auto) 0.03 (0-0.5) Absolute Lymphs (auto) 0.59 L (1.0-4.6) Absolute Monos (auto) 0.48 (0.0-1.3) Lymphocytes % 7.3 L (24.0-44.0) % Monocytes % 5.9 (0.0-12.0) % Eosinophils % 0.4 (0.00-5.0) % Basophils % 0.1 (0.0-0.4) % Absolute Granulocytes 7.02 H (1.4-6.9) Basophils # 0.01 (0-0.4) Sodium (137-145) mmol/L Potassium (3.5-5.1) mmol/L Chloride (98-107) mmol/L Carbon Dioxide (22-30) mmol/L Anion Gap (5-15) MEQ/L BUN (7-17) mg/dL Creatinine (0.52-1.04) mg/dL Estimated GFR ML/MIN Glucose (74-106) mg/dL Calcium (8.4-10.2) mg/dL Total Bilirubin (0.2-1.3) mg/dL AST (14-36) U/L ALT (0-35) U/L Alkaline Phosphatase (38-126) U/L Serum Total Protein (6.3-8.2) g/dL Albumin (3.5-5.0) g/dL Lipase (23-300) U/L Urine Color (YELLOW) Urine Appearance (CLEAR) Urine pH (5-6) Ur Specific [place] (1.005-1.025) Urine Protein (Negative) Urine Ketones (NEGATIVE) Urine Blood (0-5) Prakash/ul Urine Nitrite (NEGATIVE) Urine Bilirubin (NEGATIVE) Urine Urobilinogen (0-1) mg/dL Ur Leukocyte Esterase (NEGATIVE) Urine WBC (Auto) (0-5) /HPF Urine RBC (Auto) (0-2) /HPF U Hyaline Cast (Auto) (0-2) /LPF U Epithel Cells (Auto) (FEW) /HPF Urine Bacteria (Auto) (NEGATIVE) /HPF Urine Mucus (Auto) (NEGATIVE) /HPF Urine Culture Reflexed (NO) Urine Glucose (NEGATIVE) mg/dL Urine HCG, Qual (Negative) - Progress Progress: improved Progress Note: Patient reassessed. She feels much better. Laboratory work-up essentially nonremarkable. Working diagnosis is gastroenteritis. IV fluids infused. Nausea vomiting improved. Patient tolerated p.o. CT reveals diarrhea. UA negative for UTI. CT scan otherwise negative. Will discharge home at this time. Patient agrees to follow-up with primary care doctor within 48 hours for reevaluation. 05/20/20 10:43 05/20/20 10:44 Counseled pt/family regarding: lab results, diagnosis, need for follow-up, margarita smith - Departure Departure Disposition: Home Clinical Impression: Epigastric pain, Nausea and vomiting, Scoliosis, Gastroenteritis, Proteinuria Condition: Stable Critical Care Time: No Referrals: RAMIN VELOZ [Primary Care Provider] - Additional Instructions: Discharge/Care Plan NARCISO HAYS was seen on 05/20/20 in the Emergency Room. The patient was counseled regarding Diagnosis,Lab results, Imaging studies, need for follow up and when to return to the Emergency Room. Prescriptions given: Discharge Note I have spoken with the patient and/or caregivers. I have explained the patient's condition, diagnosis and treatment plan based on the information available to me at this time. I have answered the patient's and/or caregiver's questions and addressed any concerns. The patient and/or caregivers have as good understanding of the patient's diagnosis, condition and treatment plan as can be expected at this point. The vital signs have been stable. The patient's condition is stable and appropriate for discharge from the emergency department. The patient will pursue further outpatient evaluation with the primary care physician or other designated or consulting physician as outlined in the discha rge instructions. The patient and/or caregivers are agreeable to this plan of care and follow-up instructions have been explained in detail. The patient and/or caregivers have received these instruction. The patient/and or caregivers are aware that any significant change in condition or worsening of symptoms should prompt an immediate return to this or the closest emergency department or call 911. Prescriptions: Pantoprazole Sodium [Protonix] 40 mg PO DAILY 14 Days #14 granpkt.
[2020-05-20 07:59] LABS: Absolute Neutrophil Ct (ANC) 7.02 (1.4-6.9); BASOPHIL % 0.1 % (0.0-0.4); Basophil (Absolute #) 0.01 (0-0.4); Eosinophil % 0.4 % (0.00-5.0); Eosinophil (Absolute #) 0.03 (0-0.5); Hemoglobin 14.4 gm/dl (12.0-16.0); Lymphocyte (Absolute #) 0.59 (1.0-4.6); Lymphocytes % 7.3 % (24.0-44.0); Mean Cell Volume 79.6 fl (78-100); Mean Corpuscular Hgb Concent. 32.7 g/dl (32-36); Mean Platelet Volume 10.8 fl (7.5-11.0); Monocyte (Absolute #) 0.48 (0.0-1.3); Monocytes % 5.9 % (0.0-12.0); Neutrophil % 86.3 % (36.0-66.0); Platelet Count 231 K/mm3 (150-450); Red Blood Count 5.53 M/mm3 (4.1-5.4); Red Cell Distribution Width 15.4 % (11.5-14.0); White Blood Count 8.1 K/mm3 (4.0-10.5)
[2020-05-20 08:09] LABS: ALBUMIN 5.3 g/dL (3.5-5.0); ALKALINE PHOSPHATASE 115 U/L (38-126); ANION GAP 18.4 MEQ/L (5-15); BLOOD UREA NITROGEN 12 mg/dL (7-17); CHLORIDE 105 mmol/L (98-107); Calcium 10.4 mg/dL (8.4-10.2); Carbon Dioxide 21 mmol/L (22-30); Creatinine 1 0.82 mg/dL (0.52-1.04); EST GLOMERULAR FILTRATION RATE > 60.0 ML/MIN; Glucose 106 mg/dL (74-106); LIPASE 118 U/L (23-300); Potassium 4.3 mmol/L (3.5-5.1); SGOT/AST 27 U/L (14-36); SGPT/ALT 16 U/L (0-35); SODIUM 140 mmol/L (137-145); Total Protein 9.3 g/dL (6.3-8.2)
[2020-05-20 08:14] LABS: Appearance CLEAR (CLEAR); Bilirubin NEGATIVE (NEGATIVE); Blood NEGATIVE Ery/ul (0-5); Epithelial Cells RARE /HPF (FEW); Glucose NEGATIVE (NEGATIVE); Hyaline Casts 0-2 /LPF (0-2); Ketones MODERATE (NEGATIVE); Leukocyte Esterase NEGATIVE (NEGATIVE); Mucus SLIGHT /HPF (NEGATIVE); Nitrite NEGATIVE (NEGATIVE); Protein,Urine Dip 30 (Negative); Specific Gravity 1.017 (1.005-1.025); Urobilinogen NEGATIVE mg/dL (0-1)
--- NOTE | 2020-05-20 09:45 | XRAY ---
Indication: Epigastric pain. Multiple contiguous axial images obtained through the abdomen and pelvis using 80 cc Isovue 370 contrast. Comparison: March 07, 2019. Lung bases remain clear. Heart is not enlarged. Noncontrasted stomach and bowel loops appear nonobstructed. Normal air-filled appendix. Mild fluid distended colon including rectum favoring diarrhea. Interval cholecystectomy. No free fluid/air. Remaining liver, pancreas, spleen, adrenal glands, kidneys, ureters, bladder, uterus, and aorta appear unremarkable. No pathologic retroperitoneal lymphadenopathy. Osseous structures intact again with double curvature thoracolumbar scoliosis. Impression: 1. New mildly fluid distended colon favoring diarrhea. 2. Remaining CT abdomen/pelvis with contrast exam is negative.
[2020-05-20] MEDS ORDERED: PROTONIX 40 MG IV IV ONE (10:30)
[2020-05-20] MEDS: PROTONIX 40 MG IV IV ONE (10:31)
[2020-05-20 11:26] VITALS: BP 91/64; PULSE 96; O2SAT 97
[2020-05-20 15:50] LABS: Slide Review 1 YES
== END 2020-05-20 11:27 | disposition home or self-care (01) ==
LOC: ED 07:02
DX: R10.13 Epigastric pain (principal); R11.2 Nausea with vomiting, unspecified; M41.9 Scoliosis, unspecified; R80.9 Proteinuria, unspecified
CPT/HCPCS: 36000; 36415; 74177; 80053; 81001; 83690; 84703; 85025; 93005; 96360; 96361; 96374; 96375; 99284; J2270; J2405; Q0162

== ENCOUNTER 2022-12-13 08:05 | Emergency (ER) | payer OTHER ==
[2022-12-13] MEDS ORDERED: Norflex 60 MG/2 ML IV ONE (08:09)
[2022-12-13] MEDS ORDERED: Norflex 60 MG/2 ML ONE (08:18)
[2022-12-13 08:23] VITALS: RESP 18; TEMP 97.5; O2SAT 100
[2022-12-13] MEDS ORDERED: CLINDAMYCIN-D5W 600 MG/50 ML*** 600 MG/50 ML BAG IV STA (08:30)
--- NOTE | 2022-12-13 08:41 | XRAY ---
Indication: Pain. No known injury. Comparison: None AP/lateral thoracic spine demonstrates 12 rib-bearing segments with marked dextrorotoscoliosis centered at T8. No other bony, articular, or soft tissue abnormalities.
[2022-12-13] MEDS ORDERED: Cleocin Phosphate IV 600 MG/4 ML IV SCH (08:45)
--- NOTE | 2022-12-13 09:04 | ERPHSYRPT ---
- History of Present Illness Time Seen by Provider: 12/13/22 08:30 Source: patient Exam Limitations: no limitations Patient Subjective Stated Complaint: Back pain Triage Nursing Assessment: Patient brought into ED per EMS and transferred to bed with assist of 2. Patient A+O X3. Patient's skin pink, warm and dry. Patient complains of upper back pain that started today 11/16 Patient states she woke up with back pain. Patient denies injury or trauma. Physician History: Patient is a 32-year-old white female who has known scoliosis who awoke at 6 AM with extreme back pain. Pain is in the upper back as is her scoliosis. She has had problems for many years and is not currently being followed by anyone.Patient denies any pain radiating to the legs she also denies any problems with bowels or bladder. Timing/Duration: today Method of Injury: unknown Quality: aching Back Pain Location: T-spine Severity of Pain-Max: severe Severity of Pain-Current: mild Modifying Factors: Improves With: movement Associated Symptoms: tingling in legs/feet, muscle spasms, No urinary incontinence, No loss of bowel control Previous symptoms: same symptoms as today Allergies/Adverse Reactions: No Known Drug Allergies Allergy (Verified 12/13/22 08:10) Hx Tetanus, Diphtheria Vaccination/Date Given: Yes (up to date) Hx Influenza Vaccination/Date Given: Yes Hx Pneumococcal Vaccination/Date Given: No Immunizations Up to Date: Yes Travel Risk - International Travel Have you traveled outside of the country in past 3 weeks: No - Coronavirus Screening Are you exhibiting any of the following symptoms?: No Close contact with a COVID-19 positive Pt in past 14-21 Days: No - Vaccine Status Have you recieved a Covid-19 vaccination: No - Review of Systems Constitutional: No Fever, No Chills Eyes: No Symptoms Ears, Nose, & Throat: No Symptoms Respiratory: No Cough, No Dyspnea Cardiac: No Chest Pain, No Edema, No Syncope Abdominal/Gastrointestinal: No Abdominal Pain, No Nausea, No Vomiting, No Diarrhea Genitourinary Symptoms: No Dysuria Musculoskeletal: Back Pain, No Neck Pain Skin: No Rash Neurological: No Dizziness, No Focal Weakness, No Sensory Changes Psychological: No Symptoms Endocrine: No Symptoms All Other Systems: Reviewed and Negative - Past Medical History Pertinent Past Medical History: Yes Neurological History: No Pertinent History ENT History: No Pertinent History Cardiac History: Hypertension Respiratory History: No Pertinent History Endocrine Medical History: No Pertinent History Musculoskeletal History: No Pertinent History GI Medical History: GERD, Gallbladder Disease History: No Pertinent History Psycho-Social History: No Pertinent History Female Reproductive Disorders: No Pertinent History - Past Surgical History Past Surgical History: Yes Neuro Surgical History: No Pertinent History Cardiac: No Pertinent History Respiratory: No Pertinent History Gastrointestinal: Cholecystectomy Genitourinary: No Pertinent History Musculoskeletal: No Pertinent History Female Surgical History: No Pertinent History Other Surgical History: 4 NATURAL CHILDBIRTHS - Social History Smoking Status: Never smoker Exposure to second hand smoke: No Drug Use: none Patient Lives Alone: No - Female History Hx Last Menstrual Period: 2 weeks ago Hx Now: No - Nursing Vital Signs Nursing Vital Signs: Initial Vital Signs Temperature 97.5 F 12/13/22 08:12 Pulse Rate 68 12/13/22 08:12 Respiratory Rate 18 12/13/22 08:12 Blood Pressure 105/71 12/13/22 08:12 O2 Sat by Pulse Oximetry 100 12/13/22 08:12 Pain Scale Pain Intensity 10 - Physical Exam General Appearance: mild distress Eye Exam: PERRL/EOMI, eyes nml inspection Neck Exam: normal inspection, non-tender, supple, full range of motion, No meningismus, No midline tenderness Respiratory Exam: normal breath sounds, lungs clear, No respiratory distress Cardiovascular Exam: regular rate/rhythm, normal heart sounds Gastrointestinal Exam: soft, No tenderness, No mass Back Exam: vertebral tenderness, decreased range of motion, muscle spasm Extremity Exam: normal inspection, normal range of motion, No calf tenderness, No pedal edema Neurologic Exam: alert, oriented x 3, cooperative, parking regulation enforcement officer II-XII nml as tested, normal mood/affect, nml station & gait, sensation nml, No motor deficits Skin Exam: normal color, warm, dry, No rash SpO2: 100 - Course Nursing assessment & vital signs reviewed: Yes - Radiology Exams T-Spine X-ray Interpretation: Reviewed by me Ordered Tests: Active Orders 24 hr Category Date Time Status THORACIC SPINE (AP,LAT,SWIMM) Stat Exams 12/13/22 08:33 Completed Medication Summary Generic Name Dose Route Start Last Admin Trade Name Freq PRN Reason Stop Dose Admin Clindamycin Phosphate 600 mg 12/13/22 08:45 Clindamycin Phosphate 600 Mg/4 Ml Vial IV 01/12/23 08:44 1XONLY CANDACE Discontinued Medications Generic Name Dose Route Start Last Admin Trade Name Freq PRN Reason Stop Dose Admin Clindamycin HCl/Dextrose 600 mg in 50 mls @ 100 mls/hr 12/13/22 08:30 12/13/22 08:35 Clindamycin-D5w 600 Mg/50 Ml IV 12/13/22 08:59 Not Given STAT STA Orphenadrine Citrate 60 mg 12/13/22 08:09 12/13/22 08:23 Orphenadrine Citrate 60 Mg/2 Ml Vial IV 12/13/22 08:10 60 mg STAT ONE Administration Orphenadrine Citrate Confirm 12/13/22 08:18 Orphenadrine Citrate 60 Mg/2 Ml Vial Administered 12/13/22 08:19 Dose 60 mg .ROUTE .STK-MED ONE - Progress Progress: improved Medical Desision Making - Diagnostic Testing Radiological Interpretation: Reviewed by me - Risk of complications Low Risk: Low risk of morbidity from additional dx testing or treatment - Departure Departure Disposition: Home Clinical Impression: Thoracic back pain, Scoliosis Condition: Stable Critical Care Time: No Referrals: EWA ZEPEDA NP [Primary Care Provider] - Follow up/PCP as directed Instructions: Scoliosis (DC) Prescriptions: Hydrocodone/Acetaminophen [Hydrocodone-Acetamin 5-325 mg] 1 tab PO Q6HPRN PRN 3 Days #12 tablet MDD 4 PRN Reason: Pain Orphenadrine Citrate 100 mg [Norflex 100 MG Tablet] 100 mg PO BID 5 Days #10 tab
[2022-12-13 09:42] VITALS: BP 106/70; PULSE 84
== END 2022-12-13 09:48 | disposition home or self-care (01) ==
LOC: ED 08:05
DX: M41.9 Scoliosis, unspecified (principal); M54.6 Pain in thoracic spine; I10 Essential (primary) hypertension; Z79.891 Long term (current) use of opiate analgesic; Z28.310 Unvaccinated for COVID-19
CPT/HCPCS: 72072; 96374; 99283; J2360

== ENCOUNTER 2023-01-03 02:30 | Emergency (ER) | payer OTHER ==
[2023-01-03 02:35] VITALS: TEMP 99.7
[2023-01-03] MEDS ORDERED: TORAdol 30 mg Injection IM ONE (03:10)
--- NOTE | 2023-01-03 03:11 | ERPHSYRPT ---
- History of Present Illness Time Seen by Provider: 01/03/23 03:05 Source: patient Exam Limitations: no limitations Patient Subjective Stated Complaint: sore throat, body aches, headache, ear ache Triage Nursing Assessment: pt brought in by ambulance. Pt c/o sore throat, bilat ear pain, headache and body aches since 7pm tonight. Lungs clear, heart tones reg/tachy. Pt's throat is reddened. Bilat ears reddened with fluid noted. Physician History: 32 years old female with no past medical history brought by EMS to the emergency room because of achief complaint of throbbing headache, fever, chills, sore throat, bilateral ear pain that started last night at 7 PM. The patient stated that she has been taking Mucinex for the above symptoms? No nausea or vomiting and no photophobia. Her last menstrual period was 7 days ago. She denies any abdominal pain, no nausea no vomiting she denies any urinary symptoms. Allergies/Adverse Reactions: ibuprofen Adverse Reaction (Intermediate, Verified 01/03/23 02:44) Swelling Home Medications: Naproxen 500 mg [Naprosyn 500 MG] 500 mg PO BID 01/03/23 [History] Hx Tetanus, Diphtheria Vaccination/Date Given: Yes Hx Influenza Vaccination/Date Given: Yes Hx Pneumococcal Vaccination/Date Given: No Immunizations Up to Date: Yes Travel Risk - International Travel Have you traveled outside of the country in past 3 weeks: No - Coronavirus Screening Are you exhibiting any of the following symptoms?: Yes Symptoms: Fever, Cough: New Onset, Headaches/Body Aches/Fatigue Close contact with a COVID-19 positive Pt in past 14-21 Days: No - Vaccine Status Have you recieved a Covid-19 vaccination: No - Review of Systems Constitutional: Fever, Chills, Malaise Eyes: No Symptoms Ears, Nose, & Throat: Ear Pain, Nose Congestion, Throat Pain Respiratory: No Cough, No Dyspnea Cardiac: No Chest Pain, No Edema, No Syncope Abdominal/Gastrointestinal: No Abdominal Pain, No Nausea, No Vomiting, No Diarrhea Genitourinary Symptoms: No Dysuria Musculoskeletal: Myalgias, No Back Pain, No Neck Pain Skin: No Symptoms, No Rash Neurological: Headache Psychological: No Symptoms Endocrine: No Symptoms Hematologic/Lymphatic: No Symptoms Immunological/Allergic: No Symptoms All Other Systems: Reviewed and Negative - Past Medical History Pertinent Past Medical History: Yes Neurological History: No Pertinent History ENT History: No Pertinent History Cardiac History: Hypertension Respiratory History: No Pertinent History Endocrine Medical History: No Pertinent History Musculoskeletal History: Other GI Medical History: GERD, Gallbladder Disease History: No Pertinent History Psycho-Social History: No Pertinent History Female Reproductive Disorders: No Pertinent History Other Medical History: scoliosis - Past Surgical History Past Surgical History: Yes Neuro Surgical History: No Pertinent History Cardiac: No Pertinent History Respiratory: No Pertinent History Gastrointestinal: Cholecystectomy Genitourinary: No Pertinent History Musculoskeletal: No Pertinent History Female Surgical History: No Pertinent History Other Surgical History: 4 NATURAL CHILDBIRTHS - Social History Smoking Status: Never smoker Exposure to second hand smoke: No Drug Use: none Patient Lives Alone: No - Female History Hx Last Menstrual Period: last week Hx Now: No - Nursing Vital Signs Nursing Vital Signs: Initial Vital Signs Temperature 99.7 F 01/03/23 02:33 Pulse Rate 120 H 01/03/23 02:33 Respiratory Rate 20 01/03/23 02:33 Blood Pressure 104/81 01/03/23 02:33 O2 Sat by Pulse Oximetry 100 01/03/23 02:33 Pain Scale Pain Intensity 5 - Physical Exam General Appearance: no apparent distress, alert Eye Exam: PERRL/EOMI, eyes nml inspection Ears, Nose, Throat Exam: normal ENT inspection, TMs normal, pharynx normal, moist mucous membranes, pharyngeal erythema Neck Exam: normal inspection, non-tender, supple, full range of motion Respiratory Exam: normal breath sounds, lungs clear, No respiratory distress Cardiovascular Exam: regular rate/rhythm, normal heart sounds Gastrointestinal/Abdomen Exam: soft, No tenderness Back Exam: normal inspection, No CVA tenderness, No vertebral tenderness Extremity Exam: normal inspection, normal range of motion Neurologic Exam: alert, oriented x 3, cooperative, normal mood/affect, sensation nml, No motor deficits Skin Exam: normal color, warm, dry, No rash Lymphatic Exam: No adenopathy SpO2: 100 - Course Nursing assessment & vital signs reviewed: Yes Ordered Tests: Medication Summary Discontinued Medications Generic Name Dose Route Start Last Admin Trade Name Freq PRN Reason Stop Dose Admin Ceftriaxone Sodium 1,000 mg 01/03/23 04:41 01/03/23 05:06 Ceftriaxone Sodium 1000 Mg Inj Vial IM 01/03/23 04:42 1,000 mg STAT ONE Administration Ceftriaxone Sodium Confirm 01/03/23 04:55 Ceftriaxone Sodium 1000 Mg Inj Vial Administered 01/03/23 04:56 Dose 1,000 mg .ROUTE .STK-MED ONE Ketorolac Tromethamine 30 mg 01/03/23 03:10 01/03/23 03:39 Ketorolac Tromethamine 30 Mg/Ml Inj IM 01/03/23 03:11 30 mg STAT ONE Administration Ketorolac Tromethamine Confirm 01/03/23 03:37 Ketorolac Tromethamine 30 Mg/Ml Inj Administered 01/03/23 03:38 Dose 30 mg .ROUTE .STK-MED ONE Lidocaine HCl Confirm 01/03/23 04:56 Lidocaine Hcl 1% 20 Ml Mdv 20 Ml Ml Administered 01/03/23 04:57 Dose 2 ml .ROUTE .STK-MED ONE Lab/Rad Data: Laboratory Results 01/03/23 01/03/23 Range/Units 02:43 02:43 Influenza Type A Ag NEGATIVE (NEGATIVE) Influenza Type B Ag NEGATIVE (NEGATIVE) RSV (PCR) NEGATIVE (NEGATIVE) SARS-CoV-2 (PCR) NEGATIVE (NEGATIVE) Group A Strep Antibody DETECTED (NEGATIVE) - Progress Progress: improved Air Movement: good Progress Note: 32 years old female with no past medical history brought by EMS to the emergency room because of achief complaint of throbbing headache, fever, chills, sore throat, bilateral ear pain that started last night at 7 PM. The patient stated that she has been taking Mucinex for the above symptoms? No nausea or vomiting and no photophobia. Her last menstrual period was 7 days ago. She denies any abdominal pain, no nausea no vomiting she denies any urinary symptoms. Emergency room course and medical decision making For the headache and sore throat she will be given Toradol 30 mg IM. Check rapid strep, COVID-19 antigen, RSV and influenza A/B. 01/03/23 03:13 01/03/23 04:42 Rapid strep is positive the patient will be given Rocephin 1 g IM. She will be discharged home on Augmentin 875 twice a day Alternate Tylenol and ibuprofen every 4 hours. Rest increase fluid intake. - Departure Departure Disposition: Home Clinical Impression: Strep sore throat Condition: Stable Critical Care Time: No Referrals: EWA ZEPEDA NP [Primary Care Provider] - Follow up/PCP as directed Instructions: Sore Throat, Adult (DC), Strep Throat (DC) Additional Instructions: Alternate Tylenol with ibuprofen for the fever and/or pain No work for the next 2 days. Rest and increase fluid intake. Augmentin 875 twice a day for 10 days. Prescriptions: Amox Tr/Potass Clav. 875 mg [Augmentin 875-125 Tablet] 1 each PO BID #20 tablet Ibuprofen [IBUPROFEN 400 MG TABLET] 1 - 2 tablet PO Q6H PRN #40 tablet PRN Reason: Pain
[2023-01-03 03:21] LABS: INFLUENZA A NEGATIVE (NEGATIVE); INFLUENZA B NEGATIVE (NEGATIVE); RESPIRATORY SYNCTIAL VIRUS NEGATIVE (NEGATIVE); SARS-CoV-2 Xpert Express NEGATIVE (NEGATIVE)
[2023-01-03] MEDS ORDERED: TORAdol 30 mg Injection ONE (03:37)
[2023-01-03] MEDS ORDERED: Rocephin 1000 MG INJ IM ONE (04:41)
[2023-01-03] MEDS ORDERED: Rocephin 1000 MG INJ ONE (04:55)
[2023-01-03] MEDS ORDERED: XYLOCAINE 1% HCL 20 ML MDV ONE (04:56)
[2023-01-03 05:05] VITALS: PULSE 107; RESP 16
[2023-01-03 05:22] VITALS: O2SAT 100
[2023-01-03 05:38] VITALS: BP 99/66
== END 2023-01-03 05:30 | disposition home or self-care (01) ==
LOC: ED 02:30
DX: J02.0 Streptococcal pharyngitis (principal); R51.9 Headache, unspecified; R50.9 Fever, unspecified; H92.03 Otalgia, bilateral; I10 Essential (primary) hypertension; Z28.310 Unvaccinated for COVID-19
CPT/HCPCS: 0241U; 87651; 96372; 99283; J0696; J1885